=== PATIENT | male | born 1950 | race Caucasian/White ===

== ENCOUNTER 2022-05-06 17:09 | Emergency (ER) | payer OTHER ==
[~2022-05-06] VITALS: Ht 175.3 cm; Wt 63.6 kg
[~2022-05-06 17:09] MED LIST: ASPI-1444 PO; LISI-893 PO
[2022-05-06 17:29] VITALS: BP 128/74
[2022-05-06] MEDS ORDERED: TAMS-13 PO (17:34)
[2022-05-06] MEDS ORDERED: ATOR40TA28 PO (17:34)
[2022-05-06] MEDS ORDERED: AMLO-258 PO (17:34)
[2022-05-06] MEDS ORDERED: DOXA2TAB86 PO (17:34)
[2022-05-06] MEDS ORDERED: SULF-261 PO (19:47)
== END 2022-05-06 23:00 | disposition home or self-care (01) ==
LOC: EMS 17:39
DX: L03.031 Cellulitis of right toe (principal); I10 Essential (primary) hypertension; E78.00 Pure hypercholesterolemia, unspecified; Z79.899 Other long term (current) drug therapy
CPT/HCPCS: 99283; 73660; 96372; J0690

== ENCOUNTER 2022-10-31 12:39 | Emergency (ER) | payer MEDICARE ==
[~2022-10-31] VITALS: Ht 167.6 cm; Wt 65.9 kg
[~2022-10-31 12:39] MED LIST changes: +AMLO-258 PO; +ATOR40TA28 PO; +DOXA2TAB86 PO; -LISI-893 PO; +TAMS-13 PO
[2022-10-31 17:12] VITALS: BP 132/87
[2022-10-31 17:18] LABS: BASOPHILS % (AUTO) 0.6 % (0.0-2.0); EOSINOPHILS % (AUTO) 1.1 % (1.0-6.0); HEMOGLOBIN 13.9 g/dL (13.5-17.5); LYMPHOCYTES # (AUTO) 2.2 K/uL (1.0-4.8); LYMPHOCYTES % (AUTO) 23.3 % (22.0-44.0); MEAN CORPUSCULAR HEMOGLOBIN 22.4 pg (26.0-34.0); MEAN CORPUSCULAR HGB CONC 30.8 G/dL (31.0-37.0); MEAN CORPUSCULAR VOLUME 73 fL (80-100); MONOCYTES # (AUTO) 0.8 K/uL (0.1-1.0); MONOCYTES % (AUTO) 7.9 % (2.0-9.0); NEUTROPHILS # (AUTO) 6.4 K/uL (1.8-7.7); NEUTROPHILS % (AUTO) 67.1 % (40.0-70.0); PLATELET COUNT (AUTO) 225 K/uL (150-450); RED BLOOD CELL COUNT(AUTO) 6.19 MIL/uL (4.50-5.90)
[2022-10-31 17:30] LABS: ANION GAP 3 mmol/L (8-16); CALCIUM, TOTAL 8.4 mg/dL (8.8-10.5); CARBON DIOXIDE 29 mmol/L (22-29); CHLORIDE 106 mmol/L (98-107); GLOMERULAR FILTR. RATE CALC > 60 mL/min (>60); GLUCOSE,RANDOM 112 mg/dL (70-110); POTASSIUM 4.1 mmol/L (3.5-5.1); SODIUM SERUM 138 mmol/L (136-145); UREA NITROGEN, BLOOD 10 mg/dL (7-18)
[2022-10-31 17:35] LABS: ALANINE AMINOTRANSFERASE 26 U/L (12-78); ALBUMIN 3.3 g/dL (3.4-5.0); ALKALINE PHOSPHATASE 129 U/L (46-116); ASPARTATE AMINOTRANSFERASE 19 U/L (15-37); BILIRUBIN,TOTAL 0.3 mg/dL (0.1-1.0)
== END 2022-10-31 18:32 | disposition home or self-care (01) ==
LOC: EMS 12:42
DX: M75.01 Adhesive capsulitis of right shoulder (principal); E78.00 Pure hypercholesterolemia, unspecified; I10 Essential (primary) hypertension; Z98.890 Other specified postprocedural states
CPT/HCPCS: 80053; 82962; 85025; 99284

== ENCOUNTER → 2022-12-12 | Outpatient (CLI) | payer MEDICARE ==
[2022-12-13 10:30] VITALS: BP 125/59
== END | disposition home or self-care (01) ==
LOC: SRCNTR 13:31
PROVIDERS: ATTEND Hospitalist
DX: I10 Essential (primary) hypertension (principal); E78.5 Hyperlipidemia, unspecified; N40.1 Benign prostatic hyperplasia with lower urinary tract symptoms; I63.9 Cerebral infarction, unspecified
CPT/HCPCS: G0463

== ENCOUNTER 2024-05-21 08:25 | Day surgery (SDC) | payer MEDICARE, MEDICAID ==
[~2024-05-21] VITALS: Ht 170.2 cm; Wt 65.5 kg
[~2024-05-21 08:25] MED LIST changes: +AMOX1TAB15 PO; +PANT-31 PO; +SODIUM CHLORIDE 0.9% 1,000 ML ONE; -TAMS-13 PO; +TAMS0.4C94 PO
[2024-05-21] MEDS: SODIUM CHLORIDE 0.9% 1,000 ML IV ONE (09:17)
== END 2024-05-21 12:15 | disposition home or self-care (01) ==
LOC: SURGERY 08:25
PROVIDERS: ATTEND Internal Medicine
DX: R10.13 Epigastric pain (principal); K31.89 Other diseases of stomach and duodenum; R11.2 Nausea with vomiting, unspecified; K44.9 Diaphragmatic hernia without obstruction or gangrene; K29.50 Unspecified chronic gastritis without bleeding
CPT/HCPCS: 43239; 88305; 88312; 88313; C1769; J7030